=== PATIENT | female | born 1970 | race African-American/Black ===

== ENCOUNTER 2023-05-22 11:06 | Emergency (ER) | payer SELFPAY ==
[~2023-05-22] VITALS: Ht 157.5 cm; Wt 97.5 kg
[~2023-05-22 11:06] MED LIST: AZIT-93 PO
[2023-05-22 11:15] VITALS: BP_SYST 122; PULSE 85; RESP 18; TEMP 97.3; O2SAT 97
[2023-05-22 11:58] LABS: BASOPHILS % (AUTO) 0.4 % (0.0-2.0); EOSINOPHILS # (AUTO) 0.1 K/uL (0.0-0.4); EOSINOPHILS % (AUTO) 1.6 % (0.0-4.0); HEMATOCRIT 41.4 % (36-48); HEMOGLOBIN 13.7 g/dL (12.0-16.0); LYMPHOCYTES # (AUTO) 2.3 K/uL (1.0-5.5); MEAN CORPUSCULAR HEMOGLOBIN 32 pg (27-31); MEAN CORPUSCULAR HGB CONC 33 % (32-36); MEAN CORPUSCULAR VOLUME 98 fL (79.0-98.0); MONOCYTES # (AUTO) 0.3 K/uL (0.0-1.0); NEUTROPHILS # (AUTO) 3.8 K/uL (1.8-7.7); PLATELET COUNT (AUTO) 180 K/uL (130-430); RED BLOOD CELL COUNT(AUTO) 4.23 MIL/uL (4.2-6.2); RED CELL DISTRIBUTION WIDTH 12.8 % (9.0-15.0); WHITE BLOOD COUNT (AUTO) 6.5 K/uL (4.8-10.8)
[2023-05-22 12:08] LABS: ALANINE AMINOTRANSFERASE 11 U/L (12-78); ALBUMIN 3.7 g/dL (3.4-4.8); ANION GAP 11 (5-15); ASPARTATE AMINOTRANSFERASE 16 U/L (10-37); CALCIUM 9.1 mg/dL (8.4-11.0); CARBON DIOXIDE 26 mmol/L (23-29); CHLORIDE 106 mmol/L (98-107); CREATININE 0.83 mg/dL (0.55-1.30); GFR AFRICAN AMERICAN 93 mL/min (>90); GLUCOSE 115 mg/dL (74-106); POTASSIUM 3.9 mmol/L (3.5-5.1); SODIUM SERUM 143 mmol/L (136-145); TOTAL BILIRUBIN 0.4 mg/dL (0.0-1.0); TOTAL PROTEIN, SERUM 7.4 g/dL (6.4-8.3); UREA NITROGEN, BLOOD 12 mg/dL (8-21)
[2023-05-22 12:17] LABS: GFR NON AFRICAN-AMERICAN 77 mL/min (>90)
[2023-05-22] MEDS ORDERED: ACETAMINOPHEN 500 MG TABLET PO ONE (13:00)
[2023-05-22] MEDS ORDERED: ASPIRIN 325 MG TABLET PO ONE (13:00)
[2023-05-22] MEDS ORDERED: IBUP-1969 PO (13:47)
[2023-05-22 13:53] VITALS: BP_SYST 122; PULSE 85; RESP 18; TEMP 97.3; O2SAT 97
== END 2023-05-22 13:55 | disposition home or self-care (01) ==
LOC: SED 11:06
DX: R07.89 Other chest pain (principal); M54.6 Pain in thoracic spine; I10 Essential (primary) hypertension; Z91.018 Allergy to other foods; Z79.899 Other long term (current) drug therapy
CPT/HCPCS: 36415; 71045; 80053; 83880; 84484; 85025; 93005; 99285

== ENCOUNTER 2023-11-10 17:08 | Emergency (ER) | payer SELFPAY ==
[~2023-11-10] VITALS: Ht 157.5 cm; Wt 104.3 kg
[~2023-11-10 17:08] MED LIST changes: +IBUP-1969 PO
[2023-11-10 17:12] VITALS: BP_SYST 111; PULSE 89; RESP 18; TEMP 97.6; O2SAT 99
[2023-11-10 18:01] LABS: INFLUENZA TYPE A NEGATIVE (NEGATIVE); INFLUENZA TYPE B NEGATIVE (NEGATIVE)
[2023-11-10] MEDS ORDERED: OFLO5DRO6 EACH EYE (19:53)
[2023-11-10] MEDS ORDERED: IBUP-1969 PO (19:53)
[2023-11-10] MEDS ORDERED: GUAI5SYR PO (19:53)
[2023-11-10] MEDS ORDERED: AUG875 PO (19:53)
[2023-11-10] MEDS: cefTRIAXone 1 GM in LIDOCAINE 1%, 20 ML MDV 2.1 ML IM ONE (20:12)
[2023-11-10] MEDS: KETOROLAC TROMETHAMINE 60 MG/2 ML VIAL IM ONE (20:13)
[2023-11-10] MEDS: OFLOXACIN 0.3% OPHTHALMIC DROPS 5 ML OP ONE (20:19)
[2023-11-10 20:36] VITALS: BP_SYST 111; PULSE 89; RESP 18; TEMP 97.6; O2SAT 99
== END 2023-11-10 20:35 | disposition home or self-care (01) ==
LOC: SED 17:08
DX: J18.9 Pneumonia, unspecified organism (principal); H10.9 Unspecified conjunctivitis; I25.10 Atherosclerotic heart disease of native coronary artery without angina pectoris; Z79.899 Other long term (current) drug therapy; Z20.822 Contact with and (suspected) exposure to COVID-19
CPT/HCPCS: 99285; 71045; 87426; 36415; 93005; 96372; 87804 ×2; J0696; J1885; J2001